=== PATIENT | female | born 1935 | race Caucasian/White ===

== ENCOUNTER 2019-06-17 13:40 | Emergency (ER) | payer OTHER ==
[2019-06-17 14:08] VITALS: BP_SYST 134
--- NOTE | 2019-06-17 14:14 | NUR ---
ER Dr. NAQVI at bedside examining patient.
--- NOTE | 2019-06-17 14:15 | NUR ---
Patient to ER bed 3 to gown for evaluation. Side rails up. report given to Trudy KELLY
--- NOTE | 2019-06-17 14:17 | NUR ---
Patient brought in byher daughter in the ED for wheezing, cough, urinary frequency, dysuria and BLE swelling. Patient denied any chest pain or shortness of breath. Denied any fevers, chills, nausea or vomiting. Patient is alert and oriented x4, respirations even and unlabored, speaking in full sentences and ambulating with a steady gait. VSS, pain level 0/10. Daughter at bedside. Informed of the approximate wait time. Instructed to notify ED staff for any changes in condition or worsening of symptoms. Patient verbalized understanding.
--- NOTE | 2019-06-17 14:20 | NUR ---
RT at bedside administering nebulizer treatment as ordered by Dr. Levi. Patient tolerated the medication well. See eMAR for details.
[2019-06-17] MEDS ORDERED: ALBUTEROL SULFATE 0.083% 2.5 MG/3 ML VIAL.NEB INH ONE (14:30)
[2019-06-17] MEDS ORDERED: LEVOFLOXACIN 500 MG/D5W 100 ML IV ONE (14:30)
--- NOTE | 2019-06-17 14:44 | NUR ---
ECG done at bedside as ordered by Dr. Levi. Patient tolerated the procedure well. Report given to .
--- NOTE | 2019-06-17 14:46 | NUR ---
X-ray tech at done bedside as ordered by Dr. Levi. Patient tolerated the procedure well.
--- NOTE | 2019-06-17 15:15 | NUR ---
Urine specimen collected and dropped off at the lab as ordered by Dr. Levi.
--- NOTE | 2019-06-17 15:15 | NUR ---
Tried to start a line on her but she is a hard stick.
--- NOTE | 2019-06-17 15:35 | NUR ---
copier repair technician at bedside collecting blood specimen as ordered by Dr. Levi. Patient tolerated the procedure well.
--- NOTE | 2019-06-17 15:45 | NUR ---
# 20 gauge angiocath placed to RFA. Use of asceptic technique. Opsite placed over site. Blood return noted. Flushed with 10 cc of normal saline. No evidence of infiltration noted. Patient tolerated well.
[2019-06-17 15:58] LABS: BASOPHILS % (AUTO) 0.4 % (0.0-2.0); EOSINOPHILS # (AUTO) 0.2 K/uL (0.0-0.4); EOSINOPHILS % (AUTO) 2.3 % (0.0-4.0); HEMATOCRIT 34.4 % (36-48); HEMOGLOBIN 11.4 g/dL (12.0-16.0); LYMPHOCYTES # (AUTO) 2.6 K/uL (1.0-5.5); LYMPHOCYTES % (AUTO) 32.8 % (20.5-51.5); MEAN CORPUSCULAR HEMOGLOBIN 29 pg (27-31); MEAN CORPUSCULAR HGB CONC 33 % (32-36); MEAN CORPUSCULAR VOLUME 86 fL (79.0-98.0); MONOCYTES # (AUTO) 0.5 K/uL (0.0-1.0); MONOCYTES % (AUTO) 6.1 % (1.7-9.3); NEUTROPHILS # (AUTO) 4.6 K/uL (1.8-7.7); NEUTROPHILS % (AUTO) 58.4 % (40.0-70.0); PLATELET COUNT (AUTO) 333 K/uL (130-430); RED BLOOD CELL COUNT(AUTO) 3.99 MIL/uL (4.2-6.2); RED CELL DISTRIBUTION WIDTH 16.3 % (9.0-15.0); WHITE BLOOD COUNT (AUTO) 7.9 K/uL (4.8-10.8)
[2019-06-17 16:00] LABS: ANION GAP 15 (5-15); CALCIUM 9.1 mg/dL (8.4-11.0); CHLORIDE 100 mmol/L (98-107); CREATININE 0.83 mg/dL (0.55-1.30); GLUCOSE 173 mg/dL (70-99); POTASSIUM 3.2 mmol/L (3.5-5.1); SODIUM SERUM 135 mmol/L (136-145); UREA NITROGEN, BLOOD 11 mg/dL (8-21)
[2019-06-17 16:10] LABS: ASPARTATE AMINOTRANSFERASE 18 U/L (10-37); TOTAL BILIRUBIN 0.2 mg/dL (0.0-1.0)
[2019-06-17 16:12] LABS: ALANINE AMINOTRANSFERASE 15 U/L (12-78); ALBUMIN 3.7 g/dL (3.4-4.8)
[2019-06-17 16:20] LABS: BILIRUBIN,URINE NEGATIVE (NEGATIVE); BLOOD, URINE NEGATIVE (NEGATIVE); CLARITY/URINE SL CLOUDY (CLEAR); COLOR,URINE YELLOW (YELLOW); GLUCOSE,URINE NEGATIVE (NEGATIVE); KETONES,URINE NEGATIVE (NEGATIVE); LEUKOCYTE ESTERASE ,URINE 2+ (NEGATIVE); NITRITE, URINE NEGATIVE (NEGATIVE); PROTEIN URINE NEGATIVE (NEGATIVE); UROBILINOGEN,URINE 0.2 (0.2-1.0)
[2019-06-17 16:34] LABS: PROTHROMBIN TIME 9.9 SECS (9.5-12.5)
[2019-06-17] MEDS ORDERED: POTASSIUM CHLORIDE 20 MEQ/PKT PACKET PO ONE (16:45)
--- NOTE | 2019-06-17 16:49 | NUR ---
Administered Potassium PO as ordered by Dr. Levi. Patient tolerated the medication well. See eMAR for details.
[2019-06-17 16:55] LABS: BACTERIA,URINE MANY /HPF (None Seen); MUCUS,URINE None Seen /LPF (None Seen); RBC,URINE 0-3 /HPF (0-3); WBC,URINE 20-50 /HPF (0-3)
[2019-06-17 17:29] VITALS: BP_SYST 134
--- NOTE | 2019-06-17 17:40 | NUR ---
Patient given written and verbal discharge instructions and verbalizes understanding. ER MD discussed with patient the results and treatment provided. Patient in stable condition. ID arm band removed. IV catheter removed intact and dressing applied, no active bleeding. Rx of Levaquin given. Patient educated on pain management and to follow up with PMD. Pain Scale 0/10. Opportunity for questions provided and answered. Medication side effect fact sheet provided.
[2019-06-17 17:59] LABS: FREE T4 (FREE THYROXINE) 0.8 ng/dl (0.8-1.5); THYROID STIMULATING HORMONE 2.64 uIu/mL (0.36-3.74)
--- NOTE | 2019-06-20 14:45 | NUR ---
RECEIVED +URINE CULTURE FROM LABORATORY, DISCUSSED CASE WITH DR QUINN, SPOKE WITH PT AND GIVEN NUMBER TO PHARMACY. CALLED IN PRESCRIPTION FOR TETRACYCLINE 500MG PO BID X10 DAYS, TOTAL 20 TABS. EXPLAINED TO PT TO GO TO PHARMACY TO TAPING SUPERVISOR
== END 2019-06-17 17:40 | disposition home or self-care (01) ==
LOC: SED 13:40
DX: N39.0 Urinary tract infection, site not specified (principal); R06.2 Wheezing; R06.02 Shortness of breath; Z88.1 Allergy status to other antibiotic agents; Z88.2 Allergy status to sulfonamides; Z88.8 Allergy status to other drugs, medicaments and biological substances
CPT/HCPCS: 36415; 71045; 80053; 81000; 83605; 83880; 84439; 84443; 84484; 85025; 85610; 87040; 87086; 87186; 93005; 94640; 96365; 99285; J1956; J7613